=== PATIENT | male | born 1930 | race Two or more races ===

== ENCOUNTER 2021-08-16 13:00 | Outpatient (CLI) | payer MEDICARE, OTHER | END 2021-08-16 23:59 | disposition home health service (06) | LOC: WOU 13:00 | PROVIDERS: ATTEND Podiatrist Foot & Ankle Surgery | DX: E11.621 Type 2 diabetes mellitus with foot ulcer (principal); L97.524 Non-pressure chronic ulcer of other part of left foot with necrosis of bone; E11.69 Type 2 diabetes mellitus with other specified complication; M86.572 Other chronic hematogenous osteomyelitis, left ankle and foot; E11.22 Type 2 diabetes mellitus with diabetic chronic kidney disease; I12.9 Hypertensive chronic kidney disease with stage 1 through stage 4 chronic kidney disease, or unspecified chronic kidney disease; N18.9 Chronic kidney disease, unspecified; Z87.891 Personal history of nicotine dependence; Z89.422 Acquired absence of other left toe(s); R05.9 Cough, unspecified | CPT/HCPCS: 71045; A6407; G0463; 11044 ==

== ENCOUNTER 2021-09-04 09:47 | Outpatient (CLI) | payer MEDICARE, OTHER | END 2021-09-04 23:59 | disposition home or self-care (01) | LOC: RAD 09:47 | PROVIDERS: ATTEND Specialist | DX: R91.8 Other nonspecific abnormal finding of lung field (principal); I70.0 Atherosclerosis of aorta | CPT/HCPCS: 71045-TC ==

== ENCOUNTER 2021-09-05 08:25 | Outpatient (CLI) | payer MEDICARE, OTHER ==
[2021-09-05] MEDS ORDERED: LIDOCAINE SOLN 4% 50 ML BOTTLE ONE (08:41)
[2021-09-05] MEDS ORDERED: DAKINS HALF STRENGTH (0.25%) 480 ML BOTTLE ONE (09:36)
== END 2021-09-05 23:59 | disposition home health service (06) ==
LOC: WOU 08:25
PROVIDERS: ATTEND Podiatrist Foot & Ankle Surgery
DX: E11.621 Type 2 diabetes mellitus with foot ulcer (principal); L97.524 Non-pressure chronic ulcer of other part of left foot with necrosis of bone; E11.69 Type 2 diabetes mellitus with other specified complication; M86.572 Other chronic hematogenous osteomyelitis, left ankle and foot; E11.22 Type 2 diabetes mellitus with diabetic chronic kidney disease; E11.52 Type 2 diabetes mellitus with diabetic peripheral angiopathy with gangrene; I12.9 Hypertensive chronic kidney disease with stage 1 through stage 4 chronic kidney disease, or unspecified chronic kidney disease; I96 Gangrene, not elsewhere classified; N18.9 Chronic kidney disease, unspecified; Z87.891 Personal history of nicotine dependence; Z79.02 Long term (current) use of antithrombotics/antiplatelets; Z79.82 Long term (current) use of aspirin; Z89.422 Acquired absence of other left toe(s)
CPT/HCPCS: 11043; G0463; A6407

== ENCOUNTER 2021-09-12 08:30 | Outpatient (CLI) | payer MEDICARE, OTHER ==
[2021-09-12] MEDS ORDERED: LIDOCAINE SOLN 4% 50 ML BOTTLE ONE (09:01)
[2021-09-12 09:35] LABS: ALBUMIN 2.2 g/dL (3.4-5.0); BASOPHILS % (AUTO) 0.5 % (0.0-2.0); CALCIUM, SERUM 7.9 mg/dL (8.5-10.1); CARBON DIOXIDE 34 mmol/L (21-32); CHLORIDE 100 mmol/L (98-107); CREATININE 1.9 mg/dL (0.6-1.3); EOSINOPHILS % (AUTO) 5.1 % (0.0-6.0); GLUCOSE 103 mg/dL (74-106); HEMATOCRIT 27 % (39-51); HEMOGLOBIN 9.7 g/dL (13.5-17.5); LYMPHOCYTES # (AUTO) 1.1 K/uL (0.8-4.8); LYMPHOCYTES % (AUTO) 19.1 % (20.0-44.0); MEAN CORPUSCULAR HGB CONC 35 g/dl (31.0-36.0); MEAN CORPUSCULAR VOLUME 95 fL (80-96); MONOCYTES # (AUTO) 0.8 K/uL (0.1-1.30); NEUTROPHILS # (AUTO) 3.4 K/uL (1.8-8.9); NEUTROPHILS % (AUTO) 60.3 % (43.0-81.0); PLATELET COUNT (AUTO) 97 K/uL (150-450); RED BLOOD CELL COUNT(AUTO) 2.89 MIL/uL (4.5-6.0); SODIUM SERUM 138 mmol/L (136-145); UREA NITROGEN, BLOOD 19 mg/dL (7-18); WHITE BLOOD COUNT (AUTO) 5.6 K/uL (4.3-11.0)
[2021-09-12 09:38] LABS: PREALBUMIN 14.6 MG/DL (18.0-35.7)
[2021-09-12 09:40] LABS: POTASSIUM 2.3 mmol/L (3.5-5.1)
[2021-09-12 11:50] LABS: EOSINOPHILS % (MANUAL) 2 % (0-4); LYMPHOCYTES % (MANUAL) 21 % (16-48); MONOCYTES % (MANUAL) 10 % (0-11.0); NEUTROPHILS % (MANUAL) 67 (42-76)
[2021-09-16] MEDS ORDERED: BUME0.5T6 PO (20:54)
[2021-09-16] MEDS ORDERED: CEFU500T66 PO (20:54)
[2021-09-16] MEDS ORDERED: POTA8CAP20 PO (20:54)
[2021-09-16] MEDS ORDERED: DOXY-326 PO (20:54)
== END 2021-09-12 23:59 | disposition home health service (06) ==
LOC: WOU 08:30
PROVIDERS: ATTEND Podiatrist Foot & Ankle Surgery
DX: E11.621 Type 2 diabetes mellitus with foot ulcer (principal); L97.526 Non-pressure chronic ulcer of other part of left foot with bone involvement without evidence of necrosis; E11.22 Type 2 diabetes mellitus with diabetic chronic kidney disease; E11.40 Type 2 diabetes mellitus with diabetic neuropathy, unspecified; E11.69 Type 2 diabetes mellitus with other specified complication; I12.9 Hypertensive chronic kidney disease with stage 1 through stage 4 chronic kidney disease, or unspecified chronic kidney disease; M86.572 Other chronic hematogenous osteomyelitis, left ankle and foot; N18.9 Chronic kidney disease, unspecified; Z87.891 Personal history of nicotine dependence; Z89.422 Acquired absence of other left toe(s)
CPT/HCPCS: 36415; 73630; 80048; 82040; 82306; 83036; 84134; 84145; 85025; 85652; 86140; A6407; G0463

== ENCOUNTER 2021-09-14 20:24 | Inpatient (IN) | payer MEDICARE, OTHER ==
[~2021-09-14] VITALS: Ht 170.2 cm; Wt 74.8 kg
--- NOTE | 2021-09-14 20:51 | NUR ---
BIBFAMILY FROM HOME C/O FALL IN BATHROOM, BUMP TO BACK OF HEAD -KO C/O LOW K+ LEVEL. PT A/OX3. TOLERATING R/A WELL AT 100%. CONNECTED PT TO POX AND MONITOR. BINGO WORKER CHIQUI MIDLINE #18G S/L PATENT AND INTACT
--- NOTE | 2021-09-14 20:55 | NUR ---
CHIQUI DONNELLY #18G S/L; PATENT AND INTACT. FOR ATB CEFEPIME TAKEN. DX L MIDDLE TOE AMPUTATION: PSUEDOMONAS
--- NOTE | 2021-09-14 21:07 | NUR ---
SEAT COVER MAKER AT PT'S BEDSIDE
--- NOTE | 2021-09-14 21:21 | NUR ---
POC BS 190; NOTIFIED ROSA COMMUNICATIONS CONTROLLER. C-COLLAR ON; PT TOLERATING WELL. RFA #20G S/L; PATENT AND INTACT BLOOD COLLECTED AND GIVEN TO LAB. OFFERED URINAL WILL F/U WITH URINE SAMPLE TO SEND TO LAB.
[2021-09-14 21:29] LABS: BASOPHILS % (AUTO) 0.4 % (0.0-2.0); EOSINOPHILS % (AUTO) 3.8 % (0.0-6.0); HEMATOCRIT 28 % (39-51); HEMOGLOBIN 9.6 g/dL (13.5-17.5); LYMPHOCYTES # (AUTO) 0.8 K/uL (0.8-4.8); LYMPHOCYTES % (AUTO) 8.8 % (20.0-44.0); MEAN CORPUSCULAR HGB CONC 35 g/dl (31.0-36.0); MEAN CORPUSCULAR VOLUME 96 fL (80-96); MONOCYTES # (AUTO) 0.9 K/uL (0.1-1.30); MONOCYTES % (AUTO) 9.5 % (2.0-12.0); NEUTROPHILS # (AUTO) 7.4 K/uL (1.8-8.9); NEUTROPHILS % (AUTO) 77.5 % (43.0-81.0); PLATELET COUNT (AUTO) 103 K/uL (150-450); RED BLOOD CELL COUNT(AUTO) 2.88 MIL/uL (4.5-6.0); WHITE BLOOD COUNT (AUTO) 9.6 K/uL (4.3-11.0)
--- NOTE | 2021-09-14 21:32 | NUR ---
PT TAKEN TO CT VIA ESTER
[2021-09-14 21:41] LABS: CALCIUM, SERUM 7.7 mg/dL (8.5-10.1); CARBON DIOXIDE 30 mmol/L (21-32); CHLORIDE 97 mmol/L (98-107); CREATININE 2.3 mg/dL (0.6-1.3); GLUCOSE 213 mg/dL (74-106); POTASSIUM 3.6 mmol/L (3.5-5.1); SODIUM SERUM 132 mmol/L (136-145); UREA NITROGEN, BLOOD 20 mg/dL (7-18)
[2021-09-14 21:47] LABS: ALANINE AMINOTRANSFERASE 23 U/L (12-78); ALBUMIN 2.3 g/dL (3.4-5.0); ALKALINE PHOSPHATASE 94 U/L (46-116); ASPARTATE AMINOTRANSFERASE 33 U/L (15-37); BILIRUBIN,DIRECT 0.2 mg/dL (0.0-0.2); BILIRUBIN,TOTAL 0.5 mg/dL (0.2-1.0); TOTAL PROTEIN, SERUM 7.3 g/dL (6.4-8.2)
--- NOTE | 2021-09-14 22:21 | NUR ---
PT SEEN BY MARK VELÁZQUEZ
--- NOTE | 2021-09-14 22:42 | NUR ---
URINE AND COVID ANTIGEN SWAB COLLECTED AND SENT TO LAB
[2021-09-14 23:01] LABS: BILIRUBIN,URINE NEGATIVE (NEGATIVE); COLOR,URINE YELLOW (YELLOW); LEUKOCYTE ESTERASE ,URINE NEGATIVE (NEGATIVE); NITRITE, URINE NEGATIVE (NEGATIVE); PROTEIN,URINE >=300 mg/dl (NEGATIVE); UGLUCOSE 100 MG/DL mg/dL (NEGATIVE); UROBILINOGEN,URINE 0.2 EU/dL (0.2)
[2021-09-14 23:06] LABS: BACTERIA,URINE None seen /HPF (None Seen); RBC,URINE 0-2 /HPF (0-2); SQUAMOUS EPITHELIAL CELL,UR Few /HPF (None Seen); WBC,URINE 0-2 /HPF (0-3)
[2021-09-14] MEDS ORDERED: VANCOMYCIN 1 GM VIAL ONE (23:20)
[2021-09-14] MEDS ORDERED: PIPERACILLIN /TAZOBACTAM 3.375 G VIAL IV ONE (23:20)
[2021-09-14] MEDS ORDERED: PIPERACILLIN /TAZOBACTAM 3.375 G in IV D5W 50 ML IV ONE (23:30)
[2021-09-14] MEDS ORDERED: VANCOMYCIN 1 GM in IV D5W 250 ML IV ONE (23:30)
--- NOTE | 2021-09-14 23:35 | NUR ---
EPIC PANEL PAGED
--- NOTE | 2021-09-14 23:35 | NUR ---
COVID PCR SWAB COLLECTED AND SENT TO LAB
[2021-09-15] MEDS ORDERED: MAGNESIUM HYDROXIDE 30 ML UDC PO PRN
[2021-09-15] MEDS ORDERED: Z GUARD REMEDY 4 OZ OINT TP PRN
[2021-09-15] MEDS ORDERED: ONDANSETRON HCL/PF 4 MG/2 ML VIAL IVP PRN
[2021-09-15] MEDS ORDERED: ACETAMINOPHEN 325 MG TABLET PO PRN
[2021-09-15] MEDS ORDERED: ATOR40TA PO (00:06)
[2021-09-15] MEDS ORDERED: [UNRECOGNIZED DRUG - CODE] IJ (00:06)
[2021-09-15] MEDS ORDERED: POLY119P2 PO (00:06)
[2021-09-15] MEDS ORDERED: IRON150C5 PO (00:06)
[2021-09-15] MEDS ORDERED: ALLO100T PO (00:06)
[2021-09-15] MEDS ORDERED: INSU100I26 SQ (00:06)
[2021-09-15] MEDS ORDERED: MULT-447 PO (00:06)
[2021-09-15] MEDS ORDERED: CLOP75TA15 PO (00:06)
[2021-09-15] MEDS ORDERED: LEVO25TA7 PO (00:06)
[2021-09-15] MEDS ORDERED: CHOL100040 PO (00:06)
--- NOTE | 2021-09-15 02:16 | NUR ---
ADLS DONE PT URINATED X1. ALL NEEDS MET AT THIS TIME. SAFETY MEASURES IN PLACE
[2021-09-15 05:10] LABS: BASOPHILS % (AUTO) 0.4 % (0.0-2.0); EOSINOPHILS % (AUTO) 4.9 % (0.0-6.0); HEMATOCRIT 26 % (39-51); HEMOGLOBIN 8.9 g/dL (13.5-17.5); LYMPHOCYTES # (AUTO) 1.2 K/uL (0.8-4.8); LYMPHOCYTES % (AUTO) 15.5 % (20.0-44.0); MEAN CORPUSCULAR HGB CONC 35 g/dl (31.0-36.0); MEAN CORPUSCULAR VOLUME 97 fL (80-96); MONOCYTES # (AUTO) 0.9 K/uL (0.1-1.30); MONOCYTES % (AUTO) 11.5 % (2.0-12.0); NEUTROPHILS # (AUTO) 5.1 K/uL (1.8-8.9); NEUTROPHILS % (AUTO) 67.7 % (43.0-81.0); PLATELET COUNT (AUTO) 105 K/uL (150-450); RED BLOOD CELL COUNT(AUTO) 2.66 MIL/uL (4.5-6.0); WHITE BLOOD COUNT (AUTO) 7.5 K/uL (4.3-11.0)
[2021-09-15] MEDS: IV NS 0.9% 1,000 ML IV PRN ×2 (05:22→18:19)
[2021-09-15 05:29] LABS: CALCIUM, SERUM 7.5 mg/dL (8.5-10.1); CARBON DIOXIDE 30 mmol/L (21-32); CHLORIDE 98 mmol/L (98-107); CREATININE 2.3 mg/dL (0.6-1.3); GLUCOSE 137 mg/dL (74-106); MAGNESIUM 1.6 mg/dL (1.8-2.4); POTASSIUM 4.2 mmol/L (3.5-5.1); SODIUM SERUM 132 mmol/L (136-145); UREA NITROGEN, BLOOD 20 mg/dL (7-18)
--- NOTE | 2021-09-15 06:51 | NUR ---
PT SLEEPING IN BED. ON R/A TOLERATING WELL WITH NO SOB AT 100%. NO S/SX OF PAIN AT THIS TIME. RFA #20G S/L; NS @ 75ML/HR PATENT AND INTACT. CHIQUI PICCLINE #18G PATENT AND INTACT. PT CONNECTED TO MONITOR AND POX. SAFETY MEASURES IN PLACE; BED IN LOWEST LOCKED POSITION, SIDE RAILS UPX2, CALL LIGHT WITHIN EASY REACH. ALL NEEDS MET AT THIS TIME. WILL ENDORSE TONIO TO ONCOMING MORNING RN
[2021-09-15] MEDS: PANTOPRAZOLE 40 MG TABLET.DR PO SCH (07:30)
--- NOTE | 2021-09-15 07:33 | NUR ---
RECEIVED REPORT FROM ANTWAN STEINER FOR TONIO. PT ASLEEP ON BED EASILY AROUSABLE, NOT IN RESPIRATORY DISTRESS, V/S STABLE, KEPT RESTED AND COMFORTABLE. WILL CONTINUE TO MONITOR.
[2021-09-15] MEDS: ZOSYN IVPB 2.25 G in IV D5W 50ml IV SCH ×2 (08:50→17:24)
--- NOTE | 2021-09-15 09:15 | NUR ---
ROOM 209-1
--- NOTE | 2021-09-15 09:22 | NUR ---
REPORT GIVEN TO ANTWAN PETE FOR TONIO.
--- NOTE | 2021-09-15 09:50 | NUR ---
TERMINAL BLOCK ASSEMBLER NOTE- 89 Y/O ESTONIAN MALE BROUGHT IN BY FAMILY LAST NIGHT FOR INJURY SUSTAINED IN FALL AT HOME. PT IS S/P 2ND TOE AMPUTATION L FOOT. DR LAU PERFORMED. PT STRUCK HEAD THOUGH CT SHOWED NO BLEED. CT DID SHOW FX TIP C6 WITH C4-05 DISC PROTRUSION. CXR SHOWED INFILTRATES. COVID RAPID NEG, PCR PENDING, LABS ARE WNL, PMHX- DM, HTN. PT HAS NKA. DENIES PAIN. AOX4, INTERACTIVE ESTONIAN SPEAKING THOUGH UNDERSTANDS YEMENI. FAMILY STATED PT TO SEE OPTICAL EFFECTS LAYOUT PERSON. INFO FORWARDED TO [facility]. PT COMFORTABLRE, NEEDS ATTENDED, WOUND EVALUATED W INTERNAL COMMUNICATIONS WRITER, DRESSING APPLIED, PHOTOGRAPHS TAKEN FOR CHART. FAMILY UPDATED. SIDE RAILS UP, BED LOCKED, PHYSICAL THERAPY EVAL COMPLETED. MONITOR / ASSIST
--- NOTE | 2021-09-15 09:56 | NUR ---
WOUND CARE CONSULT: RECEIVED CONSULT FROM Kirsten MONCADA FOR LEFT TOE AMPUTATION SITE. DR DORADO CALLED FOR DPM CONSULT. IN AGREEMENT WITH PLAN OF CARE.
--- NOTE | 2021-09-15 10:00 | NUR ---
RN NOTE- VS - BP- 144/74, HR- 83, RR- 19, T- 98.5, O2 SATS 98% RA
[2021-09-15 12:00] VITALS: BP 104/54
[2021-09-15] MEDS ORDERED: Magnesium 1GM/D5W 100ML PREMIX 100 ML IV SCH (12:00)
[2021-09-15] MEDS ORDERED: K PHOS NEUTRAL 250 MG TABLET PO ONE (16:30)
--- NOTE | 2021-09-15 18:00 | NUR ---
RN NOTE- MANY CONVERSATIONS W DAUGHTER OF PT. FREQUENTLY CALLING ASKING ABOUT PLAN OF CARE. DISCUSSED GEOVANNA SAN ASSESSMENT AND PLAN THOUGH AWAITING HIS ORDERS. UPDATED ALL AFTERNOON BEST POSSIBLE. PICC LINE TO CHIQUI UTILIZED FOR IVF NS INFUSING AT 75/HR. PO INTAKE FAIR. ACCUCHECK BS- 182,. GEOVANNA SAN NOTIFIED. PT DESIREEUS WASN'T RECEIVED THIS MORNING. NO NEW ORDERS,. SIDE RAILS UP, CALL LIGHT CLOSE, BED LOCKED. NEEDS ATTENDED. ARTERIAL DOPPLER COMPLETED. AWAITING RESULTS DAUGHTER # LINDA.
[2021-09-15 20:00] VITALS: BP 133/67
--- NOTE | 2021-09-15 20:04 | NUR ---
RN NOTES RECEIVED PATIENT IN BED, ALERT/ORIENTED X3, FORGETFUL, ALBANIAN SPEAKING, LITTLE BELARUSIAN, STABLE ON 2LPM VIA NC, S/P FALL AT HOME, ASSISTED TO TOILET, KEPT SAFE, WILL CONTINUE TO MONITOR.
[2021-09-15] MEDS ORDERED: VANCOMYCIN HCL 0.75 GM in IV D5W 250 ML IV SCH (23:00)
[2021-09-16] VITALS (9 sets, daily range): BP systolic 114–177; BP diastolic 56–85
[2021-09-16] MEDS: ZOSYN IVPB 2.25 G in IV D5W 50ml IV SCH ×3 (00:34→11:39)
--- NOTE | 2021-09-16 01:26 | NUR ---
RN NOTES CHECKED BP X3 ELEVATED, 167/86 95, 175/85 97, 177/79 97, NOTIFIED EXOTIC DANCER MELODY, NEW ORDER OF HYDRALAZINE 10 MG IV Q6HRS PRN FOR SBP > 160, ORDER NOTED AND CARRIED OUT.
[2021-09-16] MEDS ORDERED: hydrALAZINE HCL IV 20 MG VIAL IV PRN (01:30)
[2021-09-16] MEDS ORDERED: hydrALAZINE HCL IV 20 MG VIAL ONE (01:39)
--- NOTE | 2021-09-16 07:02 | NUR ---
RN NOTES ALERT/ORIENTED X3, WELSH SPEAKING, STABLE ON ROOM AIR, VS STABLE, BP WENT DOWN TO SBP 140S, DID NOT GIVE HYDRALAZINE IV, GIVEN VANCOMYCIN AND ZOSYN VIA PICC LINE, PCR COVID TEST STILL PENDING, AWAITING RESULTS ON BLE DOPPLER STUDIES.
--- NOTE | 2021-09-16 07:25 | NUR ---
RN NOTE- WENT IN TO ASSESS PT AND FOUND PICC LINE TO BE PULLED FROM ARM. MINIMAL BLEEDING NOTED. CLEANED AREA, PRESSURE APPLIED AND DRESSING APPLIED AND SECURED. WILL CONTACT MD AND FAMILY.
--- NOTE | 2021-09-16 07:33 | NUR ---
RN OPENING NOTE- ALERT/ORIENTED X3, FORGETFUL, SOME CONFUSION PRESENT. YAKUT SPEAKING, LITTLE ARABIC, STABLE ON 2LPM VIA NC, S/P FALL AT HOME, DRESSING ON CHIQUI AT PICC LINE SITE. NO BLEEDING. WILL CONTACT MD FOR MIDLINE/PICC . BED LOCKED, CALL LIGHT IN REACH. WILL CONTINUE TO MONITOR.
[2021-09-16 08:12] LABS: CALCIUM, SERUM 7.7 mg/dL (8.5-10.1); CARBON DIOXIDE 27 mmol/L (21-32); CHLORIDE 99 mmol/L (98-107); CREATININE 2.4 mg/dL (0.6-1.3); GLUCOSE 122 mg/dL (74-106); MAGNESIUM 1.8 mg/dL (1.8-2.4); PHOSPHORUS 2.9 mg/dL (2.5-4.9); POTASSIUM 2.9 mmol/L (3.5-5.1); SODIUM SERUM 133 mmol/L (136-145); UREA NITROGEN, BLOOD 19 mg/dL (7-18)
[2021-09-16] MEDS: PANTOPRAZOLE 40 MG TABLET.DR PO SCH (08:41)
[2021-09-16] MEDS ORDERED: ATORVASTATIN 40 MG TABLET PO SCH (09:00)
[2021-09-16] MEDS ORDERED: LEVOTHYROXINE SODIUM 50 MCG TABLET PO SCH (09:00)
[2021-09-16] MEDS ORDERED: INSULIN GLARGINE, 100 UNIT/ML CARTRIDGE SQ SCH (09:00)
[2021-09-16] MEDS ORDERED: CLOPIDOGREL BISULFATE 75 MG TABLET PO SCH (09:00)
[2021-09-16] MEDS ORDERED: ALLOPURINOL 100 MG TABLET PO SCH (09:00)
[2021-09-16] MEDS: POTASSIUM CHLORIDE 20 MEQ TAB.PRT.SR PO SCH ×2 (10:16→11:09)
[2021-09-16] MEDS ORDERED: POTASSIUM CHLORIDE 10 MEQ TABLET.SA PO ONE (12:00)
--- NOTE | 2021-09-16 15:49 | NUR ---
RN NOTE- GEOVANNA SAN ORDERED PT TO BE DC W FAMILY,.. DC COMPLETED . GEOVANNA SAN WILL PHONE IN RX LATER TODAY. FAMILY NOTIFIED AND UNDERSTAND. DC COMPLETED. AWAITING FAMILY TO P/U PT.
--- NOTE | 2021-09-16 16:30 | NUR ---
TEXTED DR. MASON FOR MRI APPROVAL.
--- NOTE | 2021-09-16 16:30 | NUR ---
FIRE WATCHER NOTE- PT DC AT THIS TIME INTO CARE OF FAMILY. VS STABLE. PT AOX3, INTERACTIVE , AMBULATORY W FWW. IV HEPLOCK DC AT THIS TIME, ID [id number] REMOVED, AFTERCARE INSTRUCTIONS REVIEWED W DAUGHTER AND SON. ESCORTED TO LOBBY BY THIS RN. GEOVANNA SAN TO PUT MED ORDERS TO PHARMACY TODAY.
[2021-09-16] MEDS ORDERED: POTA8CAP20 PO (20:54)
[2021-09-16] MEDS ORDERED: DOXY-326 PO (20:54)
[2021-09-16] MEDS ORDERED: BUME0.5T6 PO (20:54)
[2021-09-16] MEDS ORDERED: CEFU500T66 PO (20:54)
== END 2021-09-16 13:15 | disposition left against medical advice (07) | DRG 551 ==
LOC: ER 20:36 → TRANSITION 09-15 03:32 → TELE2 09-15 09:23
PROVIDERS: ADMIT Hospitalist; ATTEND Nurse Practitioner Acute Care
DX: S12.500A Unspecified displaced fracture of sixth cervical vertebra, initial encounter for closed fracture (principal); N17.0 Acute kidney failure with tubular necrosis; J90 Pleural effusion, not elsewhere classified; J81.1 Chronic pulmonary edema; E87.1 Hypo-osmolality and hyponatremia; E44.0 Moderate protein-calorie malnutrition; M86.172 Other acute osteomyelitis, left ankle and foot; G95.20 Unspecified cord compression; W01.0XXA Fall on same level from slipping, tripping and stumbling without subsequent striking against object, initial encounter; Y92.002 Bathroom of unspecified non-institutional (private) residence as the place of occurrence of the external cause; M48.02 Spinal stenosis, cervical region; I12.9 Hypertensive chronic kidney disease with stage 1 through stage 4 chronic kidney disease, or unspecified chronic kidney disease; I70.0 Atherosclerosis of aorta; N18.32 Chronic kidney disease, stage 3b; Z20.822 Contact with and (suspected) exposure to COVID-19; E11.42 Type 2 diabetes mellitus with diabetic polyneuropathy; S00.03XA Contusion of scalp, initial encounter; E11.65 Type 2 diabetes mellitus with hyperglycemia; Z79.4 Long term (current) use of insulin; Z89.422 Acquired absence of other left toe(s); E11.621 Type 2 diabetes mellitus with foot ulcer; L97.529 Non-pressure chronic ulcer of other part of left foot with unspecified severity; E88.09 Other disorders of plasma-protein metabolism, not elsewhere classified; E83.42 Hypomagnesemia; Z91.81 History of falling; E11.69 Type 2 diabetes mellitus with other specified complication; E11.22 Type 2 diabetes mellitus with diabetic chronic kidney disease; E11.51 Type 2 diabetes mellitus with diabetic peripheral angiopathy without gangrene
CPT/HCPCS: 36415; 70450-TC; 71045-TC; 72125-TC; 73630-TC; 80048-TC; 80076-TC; 81001; 82962-TC; 83735-TC; 84100-TC; 84484-TC; 85025-TC; 97116-TC; 97530-TC; A6253; A6403; A6407; C9803; G0378; J0360; J1815; J2405; J2543; J3370; J3475; J7030; J7060; U0003

== ENCOUNTER 2021-09-22 14:25 | Outpatient (CLI) | payer MEDICARE, OTHER ==
[~2021-09-22 14:25] MED LIST: ALLO100T PO; ATOR40TA PO; BUME0.5T6 PO; CEFU500T66 PO; CHOL100040 PO; CLOP75TA15 PO; DOXY-326 PO; INSU100I26 SQ; IRON150C5 PO; LEVO25TA7 PO; MULT-447 PO; POLY119P2 PO; POTA8CAP20 PO; [UNRECOGNIZED DRUG - CODE] IJ
[2021-09-22 15:59] LABS: BASOPHILS % (AUTO) 0.4 % (0.0-2.0); EOSINOPHILS % (AUTO) 6.6 % (0.0-6.0); HEMATOCRIT 27 % (39-51); HEMOGLOBIN 9.2 g/dL (13.5-17.5); LYMPHOCYTES # (AUTO) 0.7 K/uL (0.8-4.8); LYMPHOCYTES % (AUTO) 12.8 % (20.0-44.0); MEAN CORPUSCULAR HGB CONC 35 g/dl (31.0-36.0); MEAN CORPUSCULAR VOLUME 96 fL (80-96); MONOCYTES # (AUTO) 0.7 K/uL (0.1-1.30); MONOCYTES % (AUTO) 12.6 % (2.0-12.0); NEUTROPHILS # (AUTO) 3.6 K/uL (1.8-8.9); NEUTROPHILS % (AUTO) 67.6 % (43.0-81.0); PLATELET COUNT (AUTO) 156 K/uL (150-450); RED BLOOD CELL COUNT(AUTO) 2.78 MIL/uL (4.5-6.0); WHITE BLOOD COUNT (AUTO) 5.4 K/uL (4.3-11.0)
[2021-09-22 16:23] LABS: BILIRUBIN,URINE NEGATIVE (NEGATIVE); COLOR,URINE YELLOW (YELLOW); LEUKOCYTE ESTERASE ,URINE NEGATIVE (NEGATIVE); NITRITE, URINE NEGATIVE (NEGATIVE); PROTEIN,URINE 100 mg/dl (NEGATIVE); UGLUCOSE 100 MG/DL mg/dL (NEGATIVE); UROBILINOGEN,URINE 0.2 EU/dL (0.2)
[2021-09-22 16:33] LABS: ALANINE AMINOTRANSFERASE 17 U/L (12-78); ALBUMIN 2.3 g/dL (3.4-5.0); ALKALINE PHOSPHATASE 76 U/L (46-116); ASPARTATE AMINOTRANSFERASE 24 U/L (15-37); BILIRUBIN,TOTAL 0.4 mg/dL (0.2-1.0); CALCIUM, SERUM 7.8 mg/dL (8.5-10.1); CARBON DIOXIDE 27 mmol/L (21-32); CHLORIDE 99 mmol/L (98-107); CREATININE 4.1 mg/dL (0.6-1.3); GLUCOSE 241 mg/dL (74-106); MAGNESIUM 1.7 mg/dL (1.8-2.4); PHOSPHORUS 3.7 mg/dL (2.5-4.9); POTASSIUM 3.6 mmol/L (3.5-5.1); SODIUM SERUM 134 mmol/L (136-145); UREA NITROGEN, BLOOD 25 mg/dL (7-18)
[2021-09-22 16:38] LABS: BACTERIA,URINE 1+ /HPF (None Seen); FINE GRANULAR CASTS,URINE Few /LPF (None Seen); RBC,URINE 51-80 /HPF (0-2); WBC,URINE 0-2 /HPF (0-3)
[2021-09-22 17:02] LABS: CREATININE, URINE 167.5 MG/DL (30.0-125.0)
[2021-09-22 23:43] LABS: URINE TOTAL PROTEIN 362.8 mg/dL (0-11.9)
[2021-09-22 23:50] LABS: CREATININE, URINE 165.9 MG/DL (30.0-125.0)
== END 2021-09-22 23:59 | disposition home or self-care (01) ==
LOC: LAB 14:25
DX: E11.22 Type 2 diabetes mellitus with diabetic chronic kidney disease (principal); N18.30 Chronic kidney disease, stage 3 unspecified
CPT/HCPCS: 36415; 80048-TC; 80053-TC; 81001; 82570-TC; 83735-TC; 84100-TC; 84155-TC; 85025-TC

== ENCOUNTER 2021-10-24 08:20 | Outpatient (CLI) | payer MEDICARE, OTHER ==
[2021-10-24 09:50] LABS: BASOPHILS % (AUTO) 0.5 % (0.0-2.0); EOSINOPHILS % (AUTO) 3.7 % (0.0-6.0); HEMATOCRIT 28 % (39-51); HEMOGLOBIN 9.8 g/dL (13.5-17.5); LYMPHOCYTES # (AUTO) 1.4 K/uL (0.8-4.8); LYMPHOCYTES % (AUTO) 23.7 % (20.0-44.0); MEAN CORPUSCULAR HGB CONC 35 g/dl (31.0-36.0); MEAN CORPUSCULAR VOLUME 95 fL (80-96); MONOCYTES # (AUTO) 0.6 K/uL (0.1-1.30); MONOCYTES % (AUTO) 10.3 % (2.0-12.0); NEUTROPHILS # (AUTO) 3.6 K/uL (1.8-8.9); NEUTROPHILS % (AUTO) 61.8 % (43.0-81.0); PLATELET COUNT (AUTO) 169 K/uL (150-450); RED BLOOD CELL COUNT(AUTO) 2.98 MIL/uL (4.5-6.0); WHITE BLOOD COUNT (AUTO) 5.8 K/uL (4.3-11.0)
[2021-10-24 10:03] LABS: ALANINE AMINOTRANSFERASE 21 U/L (12-78); ALBUMIN 2.8 g/dL (3.4-5.0); ALKALINE PHOSPHATASE 97 U/L (46-116); ASPARTATE AMINOTRANSFERASE 23 U/L (15-37); BILIRUBIN,TOTAL 0.4 mg/dL (0.2-1.0); CALCIUM, SERUM 8.1 mg/dL (8.5-10.1); CARBON DIOXIDE 30 mmol/L (21-32); CHLORIDE 98 mmol/L (98-107); CREATININE 4.2 mg/dL (0.6-1.3); GLUCOSE 149 mg/dL (74-106); POTASSIUM 4.6 mmol/L (3.5-5.1); SODIUM SERUM 132 mmol/L (136-145); UREA NITROGEN, BLOOD 27 mg/dL (7-18)
== END 2021-10-24 23:59 | disposition home health service (06) ==
LOC: WOU 08:20
PROVIDERS: ATTEND Podiatrist Foot & Ankle Surgery
DX: M86.672 Other chronic osteomyelitis, left ankle and foot (principal); E11.621 Type 2 diabetes mellitus with foot ulcer; L97.524 Non-pressure chronic ulcer of other part of left foot with necrosis of bone; E11.69 Type 2 diabetes mellitus with other specified complication; Z79.82 Long term (current) use of aspirin; Z79.02 Long term (current) use of antithrombotics/antiplatelets; I10 Essential (primary) hypertension; Z89.422 Acquired absence of other left toe(s); Z79.899 Other long term (current) drug therapy
CPT/HCPCS: 36415; 80053; 83036; 84145; 85025; 85652; 86140; A6407; G0463

== ENCOUNTER → 2021-11-03 | Outpatient (CLI) | payer MEDICARE, OTHER | END | disposition home or self-care (01) | LOC: WOU 10:46 | PROVIDERS: ATTEND Podiatrist Foot & Ankle Surgery | DX: E11.69 Type 2 diabetes mellitus with other specified complication (principal); M86.672 Other chronic osteomyelitis, left ankle and foot; E11.621 Type 2 diabetes mellitus with foot ulcer; L97.524 Non-pressure chronic ulcer of other part of left foot with necrosis of bone; Z79.82 Long term (current) use of aspirin; Z79.02 Long term (current) use of antithrombotics/antiplatelets; Z79.899 Other long term (current) drug therapy ==

== ENCOUNTER 2021-11-15 14:50 | Outpatient (CLI) | payer MEDICARE, OTHER | END 2021-11-15 23:59 | disposition home or self-care (01) | LOC: WOU 14:50 | PROVIDERS: ATTEND Podiatrist Foot & Ankle Surgery | DX: E11.621 Type 2 diabetes mellitus with foot ulcer (principal); L97.525 Non-pressure chronic ulcer of other part of left foot with muscle involvement without evidence of necrosis; E11.69 Type 2 diabetes mellitus with other specified complication; M86.672 Other chronic osteomyelitis, left ankle and foot; E11.40 Type 2 diabetes mellitus with diabetic neuropathy, unspecified; Z89.422 Acquired absence of other left toe(s); Z79.899 Other long term (current) drug therapy; Z79.82 Long term (current) use of aspirin; Z79.02 Long term (current) use of antithrombotics/antiplatelets | CPT/HCPCS: G0463 ==

== ENCOUNTER 2022-01-30 08:40 | Outpatient (CLI) | payer MEDICARE, OTHER | END 2022-01-30 23:59 | disposition home health service (06) | LOC: WOU 08:40 | PROVIDERS: ATTEND Podiatrist Foot & Ankle Surgery | DX: E11.621 Type 2 diabetes mellitus with foot ulcer (principal); L97.522 Non-pressure chronic ulcer of other part of left foot with fat layer exposed; E11.42 Type 2 diabetes mellitus with diabetic polyneuropathy; E11.69 Type 2 diabetes mellitus with other specified complication; M86.672 Other chronic osteomyelitis, left ankle and foot; Z79.4 Long term (current) use of insulin; Z89.422 Acquired absence of other left toe(s) | CPT/HCPCS: 11042 ==